=== PATIENT | female | born 1955 | race Caucasian/White ===

== ENCOUNTER → 2016-04-29 | Outpatient (REF) | payer MEDICAID, OTHER, SELFPAY ==
[~2016-04-29] MED LIST: SIMV40TA2 PO; VITA200016 PO
[2016-04-29 12:46] LABS: ALBUMIN 3.9 GM/DL (3.2-5.2); ALBUMIN/GLOBULIN RATIO 1.34 (1.00-1.93); ALKALINE PHOSPHATASE 94 U/L (45-117); ALT/SGPT 24 U/L (12-78); ANION GAP 8 MEQ/L (8-16); AST/SGOT 20 U/L (15-37); BILIRUBIN,TOTAL 0.3 MG/DL (0.2-1.0); BLOOD UREA NITROGEN 11 MG/DL (7-18); CALCIUM LEVEL 9.3 MG/DL (8.8-10.2); CARBON DIOXIDE LEVEL 29 MEQ/L (21-32); CHLORIDE LEVEL 105 MEQ/L (98-107); CHOLESTEROL LEVEL 199 MG/DL (<200); CREATININE FOR GFR 0.83 MG/DL (0.55-1.02); GLOMERULAR FILTRATION RATE > 60.0 (>45); GLUCOSE, FASTING 88 MG/DL (80-110); POTASSIUM SERUM 4.4 MEQ/L (3.5-5.1); SODIUM LEVEL 142 MEQ/L (136-145); TOTAL PROTEIN 6.8 GM/DL (6.4-8.2); TRIGLYCERIDES LEVEL 201 MG/DL (<150)
== END ==
LOC: M LABDRAW1 11:22
PROVIDERS: ATTEND Physician Assistant Medical
DX: E78.5 Hyperlipidemia, unspecified (principal)

== ENCOUNTER → 2019-05-26 | Outpatient (CLI) | payer MEDICAID, MEDICARE, OTHER ==
[~2019-05-26] MED LIST changes: -SIMV40TA2 PO; +SIMV40TA20 PO
[2019-05-26 08:55] LABS: ALBUMIN 3.6 GM/DL (3.2-5.2); ALT/SGPT 21 U/L (12-78); BILIRUBIN,TOTAL 0.3 MG/DL (0.2-1.0); BLOOD UREA NITROGEN 19 MG/DL (7-18); CARBON DIOXIDE LEVEL 31 MEQ/L (21-32); CHLORIDE LEVEL 105 MEQ/L (98-107); CHOLESTEROL LEVEL 283 MG/DL (<200); CHOLESTEROL RISK RATIO 6.581 (<5); GLOMERULAR FILTRATION RATE > 60.0 (>45); GLUCOSE, FASTING 87 MG/DL (70-100); HDL CHOLESTEROL 43 MG/DL (>40); LDL CHOLESTEROL 166 MG/DL (<100); NON-HDL-C 240 MG/DL; POTASSIUM SERUM 4.1 MEQ/L (3.5-5.1); SODIUM LEVEL 139 MEQ/L (136-145); TRIGLYCERIDES LEVEL 368 MG/DL (<150)
[2019-05-26 09:08] LABS: VITAMIN B12 LEVEL 404 PG/ML
[2019-05-26 09:15] LABS: FOLATE 13.5 NG/ML
[2019-05-30 00:06] LABS: Lyme Disease IgG/IgM Antibodie <0.91 ISR (0.00-0.90); Lyme Disease IgM Ab Quantitati <0.80 index (0.00-0.79); VITAMIN D 1,25 DIHYDROXY 35.5 pg/mL (19.9-79.3)
== END ==
LOC: M LAB 07:53
PROVIDERS: ATTEND Physician Assistant Medical
DX: E78.5 Hyperlipidemia, unspecified (principal)

== ENCOUNTER → 2020-07-04 | Outpatient (CLI) | payer MEDICARE, MEDICAID ==
--- NOTE | 2020-07-04 09:47 | REP ---
INDICATION: RADICULOPATHY,LUMBAR REGION, LAB 1ST THEN XR COMPARISON: None. TECHNIQUE: AP and lateral views of the lumbar spine. FINDINGS: Alignment and lordosis maintained. No acute fracture/compression injury or subluxation. Early advanced degenerative changes at L4-5 and L5-S1 include endplate sclerosis with marginal spurring, very minimal disc space narrowing and facet hypertrophy. Remainder of the examination demonstrates moderate age-related changes demonstrating endplate sclerosis with minimal spurring. IMPRESSION: 1. Moderate to early advanced multilevel degenerative spondylosis. <Electronically signed by Evangelista Polk > 07/04/20 [id number]
[2020-07-04 10:27] LABS: ALBUMIN 3.9 GM/DL (3.2-5.2); ALT/SGPT 25 U/L (12-78); BILIRUBIN,TOTAL 0.4 MG/DL (0.2-1.0); BLOOD UREA NITROGEN 18 MG/DL (7-18); CALCIUM LEVEL 9.6 MG/DL (8.8-10.2); CARBON DIOXIDE LEVEL 31 MEQ/L (21-32); CHLORIDE LEVEL 104 MEQ/L (98-107); CHOLESTEROL LEVEL 319 MG/DL (<200); CREATININE FOR GFR 0.83 MG/DL (0.55-1.30); GLOMERULAR FILTRATION RATE > 60.0 (>45); GLUCOSE, FASTING 92 MG/DL (70-100); HDL CHOLESTEROL 49 MG/DL (>40); LDL CHOLESTEROL 227 MG/DL (<100); NON-HDL-C 270 MG/DL; POTASSIUM SERUM 4.3 MEQ/L (3.5-5.1); SODIUM LEVEL 138 MEQ/L (136-145); TOTAL PROTEIN 7.2 GM/DL (6.4-8.2); TRIGLYCERIDES LEVEL 216 MG/DL (<150)
== END ==
LOC: M LAB 09:08
PROVIDERS: ATTEND Physician Assistant Medical
DX: E55.9 Vitamin D deficiency, unspecified (principal)

== ENCOUNTER → 2020-07-17 | Outpatient (CLI) | payer MEDICARE, MEDICAID ==
--- NOTE | 2020-07-17 10:43 | DEXAMM ---
INDICATION: DISORDER OF BONE/M89.9/M81.0 AGE REL OSTEOPOROSIS W/O FX. COMPARISON: None. TECHNIQUE: Bone density was measured using dual-energy x-ray absorptionmetry (DEXA). FINDINGS: AP SPINE L1-L4 BMD 0.961 g/cm2 Young Adult T-Score -1.9 Age Matched Z-Score -0.3. LT FEMUR, TOTAL BMD 0.711 g/cm2 Young Adult T-Score -2.4 Age Matched Z-Score -1.1. LT NECK BMD 0.666 g/cm2 Young Adult T-Score -2.7 Age Matched Z-Score -1.1. RT FEMUR, TOTAL BMD 0.685 g/cm2 Young Adult T-Score -2.6 Age Matched Z-Score -1.3. RT NECK BMD 0.677 g/cm2 Young Adult T-Score -2.6 Age Matched Z-Score -1.0. IMPRESSION: There is low bone density of the spine. There is osteoporosis of the left hip. There is osteoporosis of the right hip. FOLLOW-UP: Recommendation for the next bone density exam: 2 years. <Electronically signed by Candelario Quinn > 07/17/20 [id number]
--- NOTE | 2020-07-17 11:16 | REP ---
INDICATION: JAYASHREE SCR MAMMO/Z12.31. COMPARISON: Multiple TECHNIQUE: Digital screening mammography was carried out bilaterally in the CC and MLO projections using both 2D and 3D modalities and compared to the prior exams. By history, the patient has no complaints of a palpable breast abnormality or other significant breast complaints. FINDINGS: The breasts are unchanged in size and shape. In the retro areolar region of the left breast near 12 o'clock there is a potential subtle asymmetric density which has developed since the prior exams. This is seen best on the DBT images. No other significant changes are seen in either breast. Volpara volumetric breast density pattern is b. IMPRESSION: BIRADS/ACR category 0. Diagnostic digital magnified spot compression views left breast recommended CC and MLO projections along with diagnostic ultrasonography if indicated. This patient's Tyrer-Cuzick lifetime breast cancer risk assessment score is 10.0%. This mammogram was interpreted with the aid of an FDA-approved computer-aided detection system. The patient states she had a clinical breast exam in over a year. The patient letter being requested is M0. RECOMMENDATION: As above <Electronically signed by Hamilton Andrew > 07/17/20 [id number]
== END ==
LOC: M WHC 09:16
PROVIDERS: ATTEND Physician Assistant Medical
DX: Z12.31 Encounter for screening mammogram for malignant neoplasm of breast (principal); M81.0 Age-related osteoporosis without current pathological fracture; M89.9 Disorder of bone, unspecified

== ENCOUNTER → 2020-07-30 | Outpatient (CLI) | payer MEDICARE, MEDICAID ==
--- NOTE | 2020-07-30 10:47 | REP ---
INDICATION: ADDL VIEWS LEFT BREAST/ASYMMETRIC DENSITY. Screening mammography from 17 Jul 2020 was BI-RADS category 0 because of a possible asymmetric density. COMPARISON: Comparison mammography is reviewed from July 17, 2020 as well as May 19, 2019, May 02, 2018, and April 25, 2015. TECHNIQUE: Magnified focal spot-compression CC and MLO views of the left breast are obtained. This mammogram was interpreted with the aid of an FDA-approved computer-aided detection system. FINDINGS: Diagnostic images of the of the left breast demonstrate that the area in question compresses away to stromal elements which are felt to be unchanged from multiple prior studies including the April 2015 prior exam. There is a subareolar nodule in the left breast which is also unchanged. Scattered fibroglandular elements are noted. No suspicious mammographic abnormality. The Volpara volumetric breast density pattern is b. : IMPRESSION: BIRADS/ACR category 2 benign left breast mammographic findings. This patient's Tyrer-Cuzick lifetime breast cancer risk assessment score is 10.0%. RECOMMENDATION: Repeat screening mammography recommended 1 year (for women over 40). The patient letter being requested is M1. <Electronically signed by Candelario Quinn > 07/30/20 [id number]
== END ==
LOC: M WHC 09:24
PROVIDERS: ATTEND Physician Assistant Medical
DX: Z12.31 Encounter for screening mammogram for malignant neoplasm of breast (principal)

== ENCOUNTER → 2020-11-07 | Outpatient (CLI) | payer MEDICARE, MEDICAID ==
[~2020-11-07] MED LIST changes: +ATOR40TA75 PO; +CALC-218 PO; +CHEL50TA3 PO; +D31000TA2 PO; +GNP250TA9 PO; +THERTAB52 PO
== END ==
LOC: M LABSMTC 09:56
PROVIDERS: ATTEND Anesthesiology
DX: Z01.818 Encounter for other preprocedural examination (principal); Z11.52 Encounter for screening for COVID-19

== ENCOUNTER 2020-11-12 09:12 | Day surgery (SDC) | payer MEDICARE ==
[~2020-11-12] VITALS: Ht 154.9 cm; Wt 55.8 kg
[~2020-11-12 09:12] MED LIST changes: +NS 1,000 ML IV ONE
[2020-11-12] MEDS ORDERED: propofoL 200 MG/20 ML VIAL As Ordered ONE (11:14)
[2020-11-12 12:10] VITALS: BP 127/86
== END 2020-11-12 12:20 | disposition home or self-care (01) ==
LOC: M OPP 09:12
PROVIDERS: ATTEND Internal Medicine Gastroenterology
DX: Z12.11 Encounter for screening for malignant neoplasm of colon (principal); Z86.010 Personal history of colon polyps; K63.5 Polyp of colon; D17.5 Benign lipomatous neoplasm of intra-abdominal organs; K57.30 Diverticulosis of large intestine without perforation or abscess without bleeding; K64.8 Other hemorrhoids; Z79.899 Other long term (current) drug therapy; Z88.2 Allergy status to sulfonamides; Z87.891 Personal history of nicotine dependence

== ENCOUNTER → 2022-09-18 | Outpatient (CLI) | payer MEDICARE ==
[~2022-09-18] MED LIST changes: -D31000TA2 PO; -NS 1,000 ML IV ONE; +VITA100093 PO
== END ==
LOC: M SOG 07:56
PROVIDERS: ATTEND Orthopaedic Surgery
DX: M25.562 Pain in left knee (principal)

== ENCOUNTER → 2022-09-28 | Outpatient (CLI) | payer MEDICARE ==
[2022-09-28 09:23] LABS: BASO # 0.1 10^3/uL (0.0-0.2); BASO % 0.9 % (0.0-1.0); EOS # 0.4 10^3/uL (0.0-0.5); EOS % 6.8 % (0.0-3.0); LYMPH # 1.7 10^3/uL (1.5-5.0); LYMPH % 30.1 % (24.0-44.0); MEAN CORPUSCULAR HEMOGLOBIN 27.5 pg (27.0-33.0); MEAN CORPUSCULAR VOLUME 88.8 fl (80.0-96.0); MONO # 0.3 10^3/uL (0.0-0.8); NEUTROPHILS # 3.2 10^3/uL (1.5-8.5); PLATELET COUNT, AUTOMATED 221 10^3/uL (150-450); RED BLOOD COUNT 4.73 10^6/uL (4.00-5.40); WHITE BLOOD COUNT 5.6 10^3/uL (4.0-10.0)
[2022-09-28 09:57] LABS: ALBUMIN 3.7 G/DL (3.2-5.2); ALKALINE PHOSPHATASE 87 U/L (46-116); ALT/SGPT 21 U/L (7.0-40); AST/SGOT 12 U/L (<34); BILIRUBIN,TOTAL 0.5 MG/DL (0.3-1.2); BLOOD UREA NITROGEN 16 MG/DL (9-23); CALCIUM LEVEL 9.2 MG/DL (8.3-10.6); CARBON DIOXIDE LEVEL 30 MMOL/L (20-31); CHLORIDE LEVEL 106 MMOL/L (98-107); CHOLESTEROL LEVEL 239 MG/DL (<200); CHOLESTEROL RISK RATIO 5.31 (<5); CREATININE FOR GFR 0.78 MG/DL (0.55-1.30); GLOMERULAR FILTRATION RATE > 60.0 (>45); GLUCOSE, FASTING 90 MG/DL (74-106); LDL CHOLESTEROL 165.4 MG/DL (<100); POTASSIUM SERUM 4.6 MMOL/L (3.5-5.1); SODIUM LEVEL 142 MMOL/L (136-145); TOTAL 25(OH) VITAMIN D 29.8 NG/ML (20.0-100.0); TOTAL PROTEIN 6.3 G/DL (5.7-8.2); TRIGLYCERIDES LEVEL 143 MG/DL (<150)
== END ==
LOC: M LAB 08:25
PROVIDERS: ATTEND Family Medicine
DX: Z00.00 Encounter for general adult medical examination without abnormal findings (principal); E78.5 Hyperlipidemia, unspecified; E55.9 Vitamin D deficiency, unspecified

== ENCOUNTER → 2022-09-29 | Outpatient (CLI) | payer MEDICARE | LOC: M WHC 13:09 | PROVIDERS: ATTEND Family Medicine | DX: Z12.31 Encounter for screening mammogram for malignant neoplasm of breast (principal); Z13.820 Encounter for screening for osteoporosis; M85.88 Other specified disorders of bone density and structure, other site; M85.89 Other specified disorders of bone density and structure, multiple sites; M81.0 Age-related osteoporosis without current pathological fracture ==

== ENCOUNTER → 2023-09-20 | Outpatient (CLI) | payer OTHER ==
[2023-09-20 10:53] LABS: BASO % 0.7 % (0.0-1.0); EOS # 0.1 10^3/uL (0.0-0.5); HEMATOCRIT 42.8 % (36.0-47.0); HEMOGLOBIN 13.3 g/dl (12.0-15.5); LYMPH # 1.7 10^3/uL (1.5-5.0); LYMPH % 29.1 % (24.0-44.0); MEAN CORPUSCULAR HEMOGLOBIN 27.4 pg (27.0-33.0); MEAN CORPUSCULAR HGB CONC 31.1 g/dl (32.0-36.5); MEAN CORPUSCULAR VOLUME 88.1 fl (80.0-96.0); MONO # 0.4 10^3/uL (0.0-0.8); NEUTROPHILS # 3.6 10^3/uL (1.5-8.5); PLATELET COUNT, AUTOMATED 238 10^3/uL (150-450); RED BLOOD COUNT 4.86 10^6/uL (4.00-5.40); WHITE BLOOD COUNT 5.9 10^3/uL (4.0-10.0)
[2023-09-20 11:30] LABS: ALBUMIN 3.8 G/DL (3.2-5.2); ALKALINE PHOSPHATASE 97 U/L (46-116); ALT/SGPT 15 U/L (7.0-40); AST/SGOT 11 U/L (<34); BILIRUBIN,TOTAL 0.4 MG/DL (0.3-1.2); BLOOD UREA NITROGEN 21 MG/DL (9-23); CALCIUM LEVEL 9.1 MG/DL (8.3-10.6); CARBON DIOXIDE LEVEL 28 MMOL/L (20-31); CHLORIDE LEVEL 108 MMOL/L (98-107); CHOLESTEROL LEVEL 289 MG/DL (<200); CHOLESTEROL RISK RATIO 6.78 (<5); CREATININE FOR GFR 0.76 MG/DL (0.55-1.30); GLOMERULAR FILTRATION RATE > 60.0 (>39); GLUCOSE, FASTING 91 MG/DL (74-106); HDL CHOLESTEROL 42.6 MG/DL (>40); LDL CHOLESTEROL 212.2 MG/DL (<100); NON-HDL-C 246.4 MG/DL; POTASSIUM SERUM 4.8 MMOL/L (3.5-5.1); SODIUM LEVEL 140 MMOL/L (136-145); TOTAL 25(OH) VITAMIN D 30.5 NG/ML (20.0-100.0); TOTAL PROTEIN 6.7 G/DL (5.7-8.2); TRIGLYCERIDES LEVEL 171 MG/DL (<150)
== END ==
LOC: M LAB 09:45
PROVIDERS: ATTEND Registered Nurse
DX: M81.0 Age-related osteoporosis without current pathological fracture (principal); E78.5 Hyperlipidemia, unspecified; E55.9 Vitamin D deficiency, unspecified

== ENCOUNTER → 2024-05-10 | Outpatient (CLI) | payer MEDICARE | LOC: M RAD 10:31 | PROVIDERS: ATTEND Registered Nurse | DX: M25.521 Pain in right elbow (principal) ==

== ENCOUNTER → 2024-09-15 | Outpatient (CLI) | payer MEDICARE, MEDICAID ==
[2024-09-15 09:30] LABS: ESTIMATED AVERAGE GLUCOSE 108.0 MG/DL (60-110)
[2024-09-15 09:31] LABS: BASO # 0.1 10^3/uL (0.0-0.2); BASO % 0.8 % (0.0-1.0); EOS # 0.3 10^3/uL (0.0-0.5); EOS % 3.7 % (0.0-3.0); LYMPH # 2.0 10^3/uL (1.5-5.0); LYMPH % 26.6 % (24.0-44.0); MONO # 0.4 10^3/uL (0.0-0.8); MONO % 5.9 % (2.0-8.0); NEUTROPHILS # 4.7 10^3/uL (1.5-8.5); NEUTROPHILS % 62.6 % (36.0-66.0); PLATELET COUNT, AUTOMATED 258 10^3/uL (150-450)
[2024-09-15 10:19] LABS: ALT/SGPT 15.0 U/L (7.0-40); AST/SGOT 18.0 U/L (<34); CALCIUM LEVEL 9.2 MG/DL (8.3-10.6); CARBON DIOXIDE LEVEL 28.0 MMOL/L (20-31); CHLORIDE LEVEL 105.0 MMOL/L (98-107); CHOLESTEROL LEVEL 260.0 MG/DL (<200); CHOLESTEROL RISK RATIO 5.7 (<5); CREATININE FOR GFR 0.83 MG/DL (0.55-1.30); GLOMERULAR FILTRATION RATE 75.3 (>39); LDL CHOLESTEROL 179.8 MG/DL (<100); NON-HDL-C 214.4 MG/DL; POTASSIUM SERUM 4.3 MMOL/L (3.5-5.1); SODIUM LEVEL 143.0 MMOL/L (136-145); TRIGLYCERIDES LEVEL 173.0 MG/DL (<150)
== END ==
LOC: M LAB 08:38
PROVIDERS: ATTEND Registered Nurse
DX: I10 Essential (primary) hypertension (principal); Z79.899 Other long term (current) drug therapy

== ENCOUNTER → 2024-11-03 | Outpatient (CLI) | payer MEDICARE, MEDICAID | LOC: M WHC 10:03 | PROVIDERS: ATTEND Registered Nurse | DX: Z12.31 Encounter for screening mammogram for malignant neoplasm of breast (principal); Z13.820 Encounter for screening for osteoporosis; R92.313 Mammographic fatty tissue density, bilateral breasts; M81.0 Age-related osteoporosis without current pathological fracture; M85.88 Other specified disorders of bone density and structure, other site ==